=== PATIENT | female | born 1945 | race Caucasian/White ===

== ENCOUNTER 2016-10-25 11:06 | Emergency (ER) | payer OTHER ==
--- NOTE | 2016-10-25 12:15 | DIAGNOSTIC IMAGING REPORT ---
PROCEDURE: XR CHEST 1 VIEW INDICATION: CHEST PAIN TECHNIQUE: Portable AP view 12:08 p.m. COMPARISON: Chest CT 11/24/2012 FINDINGS: Lungs are clear. Heart and mediastinum are normal. Thorax is normal. IMPRESSION: 1. Negative chest.
--- NOTE | 2016-10-25 13:54 | DIAGNOSTIC IMAGING REPORT ---
PROCEDURE: CTA THORAX WITH CONTRAST INDICATION: CHEST PAIN. + D-DIMER. LLE PAIN TECHNIQUE: 92 ml of Isovue 370 was injected intravenously and axial images were obtained of the entire thorax with 3D sagittal and coronal MIP reconstructions. COMPARISON: Chest x-ray 10/25/[address] pulmonary angiogram 11/24/2012 FINDINGS: No evidence of pulmonary emboli. There is dependent atelectasis in both lung bases. Calcified left lower lobe granuloma. No adenopathy or effusion. Normal thoracic aorta without dissection or aneurysm. Normal heart size. Bilateral breast implants. Cholecystectomy with stable dilation of the intrahepatic and common bile ducts (14 mm). No suspicious osseous lesions. IMPRESSION: 1. No evidence of pulmonary emboli 2. Old granulomatous disease 3. Bilateral breast implants 4. Cholecystectomy with dilated intra and extrahepatic ducts, unchanged. Correlate with LFTs. 5. Results discussed with Dr. Ashraf
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
--- NOTE | 2016-10-25 14:12 | ED CLINICAL REPORT ---
Clinical Report - Physicians/Mid Levels [facility] [address] [place] [address] 10/25/2016 11:08 Patient: JOSE DAVID MANNING Time Seen: 1135. Arrived- By private vehicle. Historian- patient. HISTORY OF PRESENT ILLNESS Chief Complaint: CHEST PAIN. At its maximum, severity described as moderate. When seen in the E.D., it was almost gone. It is described as pressure and it is described as located in the left chest area. No radiation. This started yesterday and is still present. It was abrupt in onset and has been constant but is not gone now. The patient has had nausea. No vomiting, difficulty breathing or diaphoresis. (reports left knee pain for over a week. no leg swelling. reports family hx of gout.). No additional chest pain. Similar symptoms previously: (a few times). Recent medical care: Not recently seen/assessed. REVIEW OF SYSTEMS No fever, chills or skin rash. All systems otherwise negative, except as recorded above. PAST HISTORY See nurses notes. Medications: Allergy Oral. Multivitamins Oral. Baclofen External. Diclofenac Oral. Atenolol Oral 25 mg, daily. Ativan Oral 0.5 mg, 3x a day. Dicyclomine HCl Oral 10 mg, 3x a day as needed. Flonase Nasal. Levothyroxine Sodium Oral 200 mcg, take 1/2 , daily. Morphine Sulfate Oral 30 mg, Q6H. Neurontin Oral 100 mg, 3x a day as needed. OxyCODONE HCl Oral 5 mg, Q6H. TiZANidine HCl Oral (Tablet 2 mg), 3x a day as needed. Allergies: Darvon. Demerol. Imitrex. influena vaccine. NSAIDs. Tetanus-Diphtheria Toxoids. Tobacco leaf. Tylenol. SOCIAL HISTORY Never smoker. Occasional alcohol use. No drug use. No recent travel. Is a local resident. ADDITIONAL NOTES The nursing notes have not been reviewed. PHYSICAL EXAM Vital Signs: 10/25/2016 11:14 BP: 157/139. HR: 66. RR: 20. O2 saturation: 99%. Temp: 98.9 F. Pain level now: 4/10. Oxygen saturation normal. Appearance: Alert. Oriented X3. No acute distress. Eyes: Pupils equal, round and reactive to light. Eyes normal inspection. ENT: Ears normal. Nose normal. Pharynx normal. Neck: Normal inspection. Neck supple. CVS: Normal heart rate and rhythm. Heart sounds normal. Pulses normal. Respiratory: No respiratory distress. Breath sounds normal. Chest nontender. No rales, rhonchi or wheezes. Abdomen: Soft and nontender. Bowel sounds normal. Back: Normal external inspection. Skin: Skin warm and dry. Normal skin color. No rash. Normal skin turgor. Extremities: (mild tenderness to the lateral aspect of the left knee. No effusion. Overlying skin changes. No warmth. No bony other maladies. Compartments are soft and overlying skin changes. Knee is ligamentously stable). Neuro: Oriented X 3. No motor deficit. No sensory deficit. LABS, X-RAYS, AND EKG EKG: No acute process. No acute ischemia. Normal EKG. Normal sinus rhythm. Rate: 65. Normal P waves. Normal W[place]. Normal QRS complex. Normal axis. Normal ST and T waves, QT and QTc. normal sinus. The study has been interpreted contemporaneously. The study has been independently viewed by me. The EKG appears to be a good tracing. Chest X-ray: (PROCEDURE: XR CHEST 1 VIEW INDICATION: CHEST PAIN TECHNIQUE: Portable AP view 12:08 p.m. COMPARISON: Chest CT 11/24/2012 FINDINGS: Lungs are clear. Heart and mediastinum are normal. Thorax is normal. IMPRESSION: 1. Negative chest.). The X-rays were independently viewed by me and interpreted by the radiologist. The X-rays were discussed with the radiologist (via pacs). Chest CT: (PROCEDURE: CTA THORAX WITH CONTRAST INDICATION: CHEST PAIN. + D-DIMER. LLE PAIN TECHNIQUE: 92 ml of Isovue 370 was injected intravenously and axial images were obtained of the entire thorax with 3D sagittal and coronal MIP reconstructions. COMPARISON: Chest x-ray 10/25/[address] pulmonary angiogram 11/24/2012 FINDINGS: No evidence of pulmonary emboli. There is dependent atelectasis in both lung bases. Calcified left lower lobe granuloma. No adenopathy or effusion. Normal thoracic aorta without dissection or aneurysm. Normal heart size. Bilateral breast implants. Cholecystectomy with stable dilation of the intrahepatic and common bile ducts (14 mm). No suspicious osseous lesions. IMPRESSION: 1. No evidence of pulmonary emboli 2. Old granulomatous disease 3. Bilateral breast implants 4. Cholecystectomy with dilated intra and extrahepatic ducts, unchanged. Correlate with LFTs.). Chest CT performed with contrast. The study was independently viewed by me and interpreted by the radiologist. The study was discussed with the radiologist (via pacs and phone). Lower Extremity Sonography: PROCEDURE: US VENOUS - LEFT EXT INDICATION: PAIN TECHNIQUE: Duplex sonography of the deep venous system in the left lower extremity was performed. Compression and augmentation techniques were used. COMPARISON: None. FINDINGS: Each interrogated segment of deep vein from the common femoral vein into the calf veins demonstrates normal compressibility, augmentation and/or color Doppler flow without filling defect. No evidence of significant soft-tissue edema, soft-tissue mass or cyst. IMPRESSION: 1. No deep venous thrombosis in the left lower extremity. The study was independently viewed by me and interpreted by the radiologist. The study was discussed with the radiologist (via pacs). Laboratory Tests: CBC w Diff: (HEMA: 10/25/2016 11:20) ( MsgRcvd 10/25/2016 12:36) Final results Test Result Flag Units (Reference) WHITE BLOOD COUNT 7.5 K/uL (4.5-11.5) RED BLOOD COUNT 4.83 M/uL (4.00-5.20) HEMOGLOBIN 14.8 gm/dL (12.0-16.0) HEMATOCRIT 44.5 % (36.0-46.0) MEAN CELL VOLUME 92 fL (80-100) MEAN CORPUSCULAR HGB 31 pg (26-34) MEAN CORPUSCULAR HGB CONC 33 g/dL (31-37) RED CELL DISTRIBUTION WIDTH 14.8 % (11.6-14.8) PLATELET COUNT 265 K/uL (150-400) NEUTROPHIL % 67.9 % (50-75) LYMPH % 22.7 L % (25-40) MONO % 7.7 % (3-14) EOSINOPHIL % 1.3 % (0-4) BASOPHIL % 0.4 % (0-2) [id number]: (HEMA: 10/25/2016 11:20) ( [facility] 10/25/2016 12:37) Final results Test Result Flag Units (Reference) D-DIMER QUANTITATIVE 0.54 H ug/mLFEU (0.27-0.52) The primary value of this quantitative assay relates toits negative predictive value (i.e. exclusion) of pulmonaryembolism/deep vein thrombosis/DIC.Elevated levels of d-dimer may also occur with:, age, cancer, inflammation, liver disease,post-op, infection, hematoma, coronary disease, peripheralarteriopathy, bleeding disorders and thrombolytic treatment.Results should be correlated with other clinical andradiological data.Testing Methodology: Latex Immunoassay Troponin-I: (HEMA: 10/25/2016 11:20) ( [facility] 10/25/2016 12:55) Final results Test Result Flag Units (Reference) TROPONIN I <0.05 ng/mL (0.00-1.5) TROPONIN REFERENCE RANGE:<0.1 NEGATIVE0.1-1.5 INDETERMINANT>1.5 POSITIVE CMP: (HEMA: 10/25/2016 11:20) ( [facility] 10/25/2016 12:53) Final results Test Result Flag Units (Reference) GLUCOSE 124 H mg/dL (70-110) BUN 7 mg/dL (7-18) CREATININE 0.8 mg/dL (0.6-1.3) Estimated GFR >60 mL/min Estimated GFR- >60 mL/min Note: Persistent reduction over 3 months in eGFR<60 mL/min/1.73 m2 defines CKD. Patients with eGFR values>=60 mL/min/1.73 m2 may also have CKD if evidence ofpersistent proteinuria. Additional information may be foundat www.kidney.org. SODIUM 142 mmol/L (136-145) POTASSIUM 3.9 mmol/L (3.5-5.1) CHLORIDE 107 mmol/L (98-107) CARBON DIOXIDE 25 mmol/L (21-32) CALCIUM 9.0 mg/dL (8.5-10.1) TOTAL PROTEIN 7.3 g/dL (6.4-8.2) ALBUMIN 3.7 g/dL (3.3-5.0) BILIRUBIN, TOTAL 0.5 mg/dL (0.0-1.0) ALKALINE PHOSPHATASE 99 U/L (46-116) AST (SGOT) 20 U/L (15-37) ALT (SGPT) 36 U/L (12-78) . PROGRESS AND PROCEDURES Course of Care: the patient is a pleasant 71 year old female presenting for evaluation of left-sided leg pain as well as chest pain. Patient be evaluated for pulmonary embolism. Workup will include a d-dimer as well as laboratory studies. Patient also be valued for acute myocardial infarction, pneumonia, and DVT. Patient is agreeable to the treatment and plan. All questions have been answered. Patient is nontoxic and in no acute distress. Patient is noted to be hypertensive in the emergency department. We'll monitor closely. Patient's workup was a markable for the findings above. No acute abdomen maladies noted however the patient's d-dimer is noted to be elevated. CT scan of the patient's chest has been ordered. Because of the patient's negative troponin and chest pain occurring greater than 8 hours, do not feel that the troponin is needed at this time. Only symmetrical troponin is Needed based on guidelines. Patient is agreeable to the treatment and plan. Patient as been updated on the CT scan. Patient's workup is noted for the findings above. No signs of pulmonary embolism on patient's CT scan. DVTs noted to be negative on the ultrasound. Had discussion the patient regards to her workup here in the emergency department Including diagnosis, home care, follow-up, and return precautions.. All questions have been answered. The patient expressed understanding of these instructions and was agreeable to them. Because the patient's negative workup here in the emergency department, do not feel patient needs to be admitted to the hospitalor require further emergency department workup/evaluation. Disposition: Discharged. Condition: good. CLINICAL IMPRESSION 10/25/2016 12:21 BP: 104/73. HR: 61. RR: 15. O2 saturation: 94%. Pain level now: 4/10. Blood pressure normal. Oxygen saturation normal. Atypical chest pain .12 lead EKG performed. (left sided). Acute nontraumatic pain in the left lower extremity (knee) .12 lead EKG performed. INSTRUCTIONS Warnings: GENERAL WARNINGS: Return or contact your physician immediately if your condition worsens or changes unexpectedly, if not improving as expected, or if other problems arise. SPECIFICALLY, return if you develop chest, neck, jaw, shoulder, arm, or back pain, difficulty breathing, a fluttering sensation in your chest, lightheadedness, fainting, excessive fatigue, or sudden sweating. Your Current Medications: CONTINUE TAKING THE FOLLOWING MEDICATIONS: Allergy Oral. Atenolol Oral : 25 mg daily. Ativan Oral : 0.5 mg 3x a day. Baclofen External. Diclofenac Oral. Dicyclomine HCl Oral : 10 mg 3x a day, prn. Flonase Nasal. Levothyroxine Sodium Oral : 200 mcg, take 1/2 daily. Morphine Sulfate Oral : 30 mg Q6H. Multivitamins Oral. Neurontin Oral : 100 mg 3x a day, prn. OxyCODONE HCl Oral : 5 mg Q6H. TiZANidine HCl Oral : Tablet 2 mg, 3x a day, prn. Follow-up: Return to the emergency department as needed. Follow up with your doctor in three days. Reason for referral: recheck today's concerns. Summary of care provided to patient via paper. Screening today revealed the patient's blood pressure to be in the normal range. The patient should follow up with a primary care provider for blood pressure management. Understanding of the discharge instructions verbalized by patient. Follow-up with: Juan Luis Patrick MD, Cardiology, , [facility] - Cardiology, [address] [place] [address] [address], [place], [address] Follow up in three days. Reason for referral: recheck today's concerns. Summary of care provided to patient via paper. (Electronically signed by Sushil Ashraf Dr. 10/30/2016 6:42)
--- NOTE | 2016-10-25 14:12 | ED ORDER SUMMARY ---
..... Patient: JOSE DAVID MANNING OrderSheet [facility] VisitID: [id number] [address] [place] [address] 71y, F Registration Date/Time: 10/25/2016 ORDER SHEET Weight: 91.6 kg (stated) Allergies: Darvon, Demerol, Imitrex, influena vaccine, NSAIDs, Tetanus-Diphtheria Toxoids, Tobacco leaf, Tylenol GENERAL ORDERS: Autographer (Continuous) (11:10/25/2016 KKnebel R.N. per protocol) (11:32 KKnebel R.N.) Pulse oximeter (11:10/25/2016 KKnebel R.N. per protocol) (11:32 KKnebel R.N.) EKG - ER Stat (11:10/25/2016 KKnebel R.N. per protocol) (11:32 KKnebel R.N.) CBC w Diff Urgent (11:32 10/25/2016 KKnebel R.N. per protocol) (11:32 KKnebel R.N.) CMP Urgent (11:32 10/25/2016 KKnebel R.N. per protocol) (11:32 KKnebel R.N.) Chest 1V Urgent (11:52 10/25/2016 Cris Briones) (Ack 11:57 LMuller) (12:06 ALawrence ER Tech1) D-Dimer Urgent (11:52 10/25/2016 Cris Briones) (11:56 KKnebel R.N.) (Ack 11:57 LMuller) Troponin-I Urgent (11:52 10/25/2016 Cris Briones) (11:56 KKnebel R.N.) (Ack 11:57 LMuller) US Venous Left Urgent (11:52 10/25/2016 Cris Briones) (Ack 11:57 LMuller) (13:20 KKnebel R.N.) CTA Thorax w Cont (No) (gfr > 60) Urgent (12:58 10/25/2016 Cris Briones) (Ack 13:00 LMuller) (13:26 KKnebel R.N.) MEDICATION ORDERS: IV FLUIDS: IV Saline Lock (11:31 10/25/2016 Basim Harper per protocol) (11:32 Basim Harper) ORDER SHEET NOTES: [Electronically signed by Joaquín Villarreal R.N. (14:49 10/25/2016)] [Electronically signed by Sushil Ashraf Dr. (06:42 10/30/2016)] [Electronically locked/signed by Joaquín Villarreal R.N. (14:49 10/25/2016)]
--- NOTE | 2016-10-25 14:12 | ED ORDER SUMMARY ---
..... Patient: JOSE DAVID MANNING OrderSheet [facility] VisitID: [id number] [address] [place] [address] 71y, F Registration Date/Time: 10/25/2016 ORDER SHEET Weight: 91.6 kg (stated) Allergies: Darvon, Demerol, Imitrex, influena vaccine, NSAIDs, Tetanus-Diphtheria Toxoids, Tobacco leaf, Tylenol GENERAL ORDERS: Translator Deaf (Continuous) (11:10/25/2016 KKnebel R.N. per protocol) (11:32 KKnebel R.N.) Pulse oximeter (11:10/25/2016 KKnebel R.N. per protocol) (11:32 KKnebel R.N.) EKG - ER Stat (11:10/25/2016 KKnebel R.N. per protocol) (11:32 KKnebel R.N.) CBC w Diff Urgent (11:32 10/25/2016 KKnebel R.N. per protocol) (11:32 KKnebel R.N.) CMP Urgent (11:32 10/25/2016 KKnebel R.N. per protocol) (11:32 KKnebel R.N.) Chest 1V Urgent (11:52 10/25/2016 Cris Briones) (Ack 11:57 LMuller) (12:06 ALawrence ER Tech1) D-Dimer Urgent (11:52 10/25/2016 Cris Briones) (11:56 KKnebel R.N.) (Ack 11:57 LMuller) Troponin-I Urgent (11:52 10/25/2016 Cris Briones) (11:56 KKnebel R.N.) (Ack 11:57 LMuller) US Venous Left Urgent (11:52 10/25/2016 Cris Briones) (Ack 11:57 LMuller) (13:20 KKnebel R.N.) CTA Thorax w Cont (No) (gfr > 60) Urgent (12:58 10/25/2016 Cris Briones) (Ack 13:00 LMuller) (13:26 KKnebel R.N.) MEDICATION ORDERS: IV FLUIDS: IV Saline Lock (11:31 10/25/2016 Basim Harper per protocol) (11:32 Basim Harper) ORDER SHEET NOTES: [Electronically signed by Joaquín Villarreal R.N. (14:49 10/25/2016)] [Electronically signed by Sushil Ashraf Dr. (06:42 10/30/2016)] [Electronically locked/signed by Joaquín Villarreal R.N. (14:49 10/25/2016)]
--- NOTE | 2016-10-30 06:43 | ED MAR SUMMARY ---
..... Medication Administration Record [facility] [address] [place], [place] [id number] Patient: JOSE DAVID MANNING Visit ID: [id number] 71y, F Weight: 91.6 kg Height/Length: 65 in BMI: 33.6 ALLERGIES: Darvon, Demerol, Imitrex, influena vaccine, NSAIDs, Tetanus-Diphtheria Toxoids, Tobacco leaf, Tylenol
--- NOTE | 2016-10-30 06:43 | ED MED RECONCILIATION SUMMARY ---
Patient: JOSE DAVID MANNING Medication Reconciliation Report [facility] VisitID: [id number] [address] [place] [address] 71y, F Registration Date/Time: 10/25/2016 Weight: 91.6 kg Height/Length: 65 in. BMI: 33.6 ALLERGIES: Darvon, Demerol, Imitrex, influena vaccine, NSAIDs, Tetanus-Diphtheria Toxoids, Tobacco leaf, Tylenol The patient's Home Medications are listed below: CONTINUE TAKING THE FOLLOWING MEDICATIONS: Allergy Oral Atenolol Oral 25 mg, daily Ativan Oral 0.5 mg, 3x a day Baclofen External Diclofenac Oral Dicyclomine HCl Oral 10 mg, 3x a day Flonase Nasal Levothyroxine Sodium Oral 200 mcg, take 1/2 , daily Morphine Sulfate Oral 30 mg, Q6H Multivitamins Oral Neurontin Oral 100 mg, 3x a day OxyCODONE HCl Oral 5 mg, Q6H TiZANidine HCl Oral (2 mg), 3x a day The source(s) of the original Home Medication information: Not obtained. The following Medications were given to the patient in the Emergency Department: None. The following Medications were prescribed to the patient: None.
--- NOTE | 2016-10-30 06:43 | ED MAR SUMMARY ---
..... Medication Administration Record [facility] [address] [place], [place] [id number] Patient: JOSE DAVID MANNING Visit ID: [id number] 71y, F Weight: 91.6 kg Height/Length: 65 in BMI: 33.6 ALLERGIES: Darvon, Demerol, Imitrex, influena vaccine, NSAIDs, Tetanus-Diphtheria Toxoids, Tobacco leaf, Tylenol
--- NOTE | 2016-10-30 06:43 | ED DISCHARGE INSTRUCTIONS ---
Patient: JOSE DAVID MANNING General Instructions [facility] VisitID: [id number] [place] [address] 71y, F Registration Date/Time: 10/25/2016 10/25/2016 12:21 BP: 104/73. HR: 61. RR: 15. O2 saturation: 94%. Pain level now: 4/10. Blood pressure normal. Oxygen saturation normal. Atypical chest pain .12 lead EKG performed. (left sided). Acute nontraumatic pain in the left lower extremity (knee) .12 lead EKG performed. INSTRUCTIONS Warnings: GENERAL WARNINGS: Return or contact your physician immediately if your condition worsens or changes unexpectedly, if not improving as expected, or if other problems arise. SPECIFICALLY, return if you develop chest, neck, jaw, shoulder, arm, or back pain, difficulty breathing, a fluttering sensation in your chest, lightheadedness, fainting, excessive fatigue, or sudden sweating. Your Current Medications: CONTINUE TAKING THE FOLLOWING MEDICATIONS: Allergy Oral. Atenolol Oral : 25 mg daily. Ativan Oral : 0.5 mg 3x a day. Baclofen External. Diclofenac Oral. Dicyclomine HCl Oral : 10 mg 3x a day, prn. Flonase Nasal. Levothyroxine Sodium Oral : 200 mcg, take 1/2 daily. Morphine Sulfate Oral : 30 mg Q6H. Multivitamins Oral. Neurontin Oral : 100 mg 3x a day, prn. OxyCODONE HCl Oral : 5 mg Q6H. TiZANidine HCl Oral : Tablet 2 mg, 3x a day, prn. Follow-up: Return to the emergency department as needed. Follow up with your doctor in three days. Reason for referral: recheck today's concerns. Summary of care provided to patient via paper. Screening today revealed the patient's blood pressure to be in the normal range. The patient should follow up with a primary care provider for blood pressure management. Understanding of the discharge instructions verbalized by patient. Follow-up with: [place] Patrick MD, Cardiology, , [facility] - Cardiology, [address], [place], [address] Follow up in three days. Reason for referral: recheck today's concerns. Summary of care provided to patient via paper. ADDITIONAL INFORMATION Chest Pain, Uncertain Cause Chest pain can happen for a number of reasons. Sometimes the cause can not be determined. If yourcondition does not seem serious, and your pain does not appear to be coming from your heart, your doctor may recommend watching it closely. Sometimes the signs of a serious problem take more time to appear. Therefore, watch for the warning signs listed below. Home care After your visit, follow these recommendations: Rest today and avoid strenuous activity. Take any prescribed medicine as directed. Follow-up care Follow up with your doctor or this facility as instructed or if you do not start to feel better within 24 hours. Call 911 Get immediate medical attention if any of the following occur: A change in the type of pain: if it feels different, becomes more severe, lasts longer, or begins to spread into your shoulder, arm, neck, jaw or back Shortness of breath or increased pain with breathing Weakness, dizziness, or fainting Rapid heart beat Get prompt medical attention Call your doctor right away if any of the following occur: Cough with dark colored sputum (phlegm) or blood Fever of 100.4F(38C) or higher, or as directed by your health care provider Swelling, pain or redness in one leg Pain, Uncertain Cause [Acute] Pain is the bodys way of calling attention to a problem. Pain can be caused by many conditions - some minor, some serious. In your case, we were not able to find the exact cause for your pain. However, at this time there is no sign of any serious or life-threatening illness causing your pain. Sometimes more tests will be needed to determine the cause. Other times, just allowing more time to pass will either make it clear what the problem is, or the pain will go away by itself. Home Care: You may use acetaminophen (Tylenol) or ibuprofen (Motrin, Advil) to control pain, unless another medicine was prescribed. [NOTE: If you have chronic liver or kidney disease or ever had a stomach ulcer or GI bleeding, talk with your doctor before using these medicines.] Follow Up with your doctor or as advised by our staff. Get Prompt Medical Attention if any of the following occur: Changes in the pattern of your pain Appearance of new symptoms Fever of 100.4F (38C) or higher, or as directed by your healthcare provider You have been given the following additional information: Chest Pain, Uncertain Cause Pain, Uncertain Cause (Acute) (Electronically signed by Sushil Ashraf Dr. 10/30/2016 6:42)
--- NOTE | 2016-10-30 06:43 | ED DISCHARGE INSTRUCTIONS ---
Patient: JOSE DAVID MANNING General Instructions [facility] VisitID: [id number] [place] [address] 71y, F Registration Date/Time: 10/25/2016 10/25/2016 12:21 BP: 104/73. HR: 61. RR: 15. O2 saturation: 94%. Pain level now: 4/10. Blood pressure normal. Oxygen saturation normal. Atypical chest pain .12 lead EKG performed. (left sided). Acute nontraumatic pain in the left lower extremity (knee) .12 lead EKG performed. INSTRUCTIONS Warnings: GENERAL WARNINGS: Return or contact your physician immediately if your condition worsens or changes unexpectedly, if not improving as expected, or if other problems arise. SPECIFICALLY, return if you develop chest, neck, jaw, shoulder, arm, or back pain, difficulty breathing, a fluttering sensation in your chest, lightheadedness, fainting, excessive fatigue, or sudden sweating. Your Current Medications: CONTINUE TAKING THE FOLLOWING MEDICATIONS: Allergy Oral. Atenolol Oral : 25 mg daily. Ativan Oral : 0.5 mg 3x a day. Baclofen External. Diclofenac Oral. Dicyclomine HCl Oral : 10 mg 3x a day, prn. Flonase Nasal. Levothyroxine Sodium Oral : 200 mcg, take 1/2 daily. Morphine Sulfate Oral : 30 mg Q6H. Multivitamins Oral. Neurontin Oral : 100 mg 3x a day, prn. OxyCODONE HCl Oral : 5 mg Q6H. TiZANidine HCl Oral : Tablet 2 mg, 3x a day, prn. Follow-up: Return to the emergency department as needed. Follow up with your doctor in three days. Reason for referral: recheck today's concerns. Summary of care provided to patient via paper. Screening today revealed the patient's blood pressure to be in the normal range. The patient should follow up with a primary care provider for blood pressure management. Understanding of the discharge instructions verbalized by patient. Follow-up with: [place] Patrick MD, Cardiology, , [facility] - Cardiology, [address], [place], [address] Follow up in three days. Reason for referral: recheck today's concerns. Summary of care provided to patient via paper. ADDITIONAL INFORMATION Chest Pain, Uncertain Cause Chest pain can happen for a number of reasons. Sometimes the cause can not be determined. If yourcondition does not seem serious, and your pain does not appear to be coming from your heart, your doctor may recommend watching it closely. Sometimes the signs of a serious problem take more time to appear. Therefore, watch for the warning signs listed below. Home care After your visit, follow these recommendations: Rest today and avoid strenuous activity. Take any prescribed medicine as directed. Follow-up care Follow up with your doctor or this facility as instructed or if you do not start to feel better within 24 hours. Call 911 Get immediate medical attention if any of the following occur: A change in the type of pain: if it feels different, becomes more severe, lasts longer, or begins to spread into your shoulder, arm, neck, jaw or back Shortness of breath or increased pain with breathing Weakness, dizziness, or fainting Rapid heart beat Get prompt medical attention Call your doctor right away if any of the following occur: Cough with dark colored sputum (phlegm) or blood Fever of 100.4F(38C) or higher, or as directed by your health care provider Swelling, pain or redness in one leg Pain, Uncertain Cause [Acute] Pain is the bodys way of calling attention to a problem. Pain can be caused by many conditions - some minor, some serious. In your case, we were not able to find the exact cause for your pain. However, at this time there is no sign of any serious or life-threatening illness causing your pain. Sometimes more tests will be needed to determine the cause. Other times, just allowing more time to pass will either make it clear what the problem is, or the pain will go away by itself. Home Care: You may use acetaminophen (Tylenol) or ibuprofen (Motrin, Advil) to control pain, unless another medicine was prescribed. [NOTE: If you have chronic liver or kidney disease or ever had a stomach ulcer or GI bleeding, talk with your doctor before using these medicines.] Follow Up with your doctor or as advised by our staff. Get Prompt Medical Attention if any of the following occur: Changes in the pattern of your pain Appearance of new symptoms Fever of 100.4F (38C) or higher, or as directed by your healthcare provider You have been given the following additional information: Chest Pain, Uncertain Cause Pain, Uncertain Cause (Acute) (Electronically signed by Sushil Ashraf Dr. 10/30/2016 6:42)
--- NOTE | 2016-10-30 06:43 | ED MED RECONCILIATION SUMMARY ---
Patient: JOSE DAVID MANNING Medication Reconciliation Report [facility] VisitID: [id number] [address] [place] [address] 71y, F Registration Date/Time: 10/25/2016 Weight: 91.6 kg Height/Length: 65 in. BMI: 33.6 ALLERGIES: Darvon, Demerol, Imitrex, influena vaccine, NSAIDs, Tetanus-Diphtheria Toxoids, Tobacco leaf, Tylenol The patient's Home Medications are listed below: CONTINUE TAKING THE FOLLOWING MEDICATIONS: Allergy Oral Atenolol Oral 25 mg, daily Ativan Oral 0.5 mg, 3x a day Baclofen External Diclofenac Oral Dicyclomine HCl Oral 10 mg, 3x a day Flonase Nasal Levothyroxine Sodium Oral 200 mcg, take 1/2 , daily Morphine Sulfate Oral 30 mg, Q6H Multivitamins Oral Neurontin Oral 100 mg, 3x a day OxyCODONE HCl Oral 5 mg, Q6H TiZANidine HCl Oral (2 mg), 3x a day The source(s) of the original Home Medication information: Not obtained. The following Medications were given to the patient in the Emergency Department: None. The following Medications were prescribed to the patient: None.
== END 2016-10-25 14:30 | disposition home or self-care (01) ==
LOC: ED SRH 11:06
DX: R07.89 Other chest pain (principal); M25.562 Pain in left knee; Z79.891 Long term (current) use of opiate analgesic; Z79.899 Other long term (current) drug therapy; Z79.1 Long term (current) use of non-steroidal anti-inflammatories (NSAID); Z88.6 Allergy status to analgesic agent; Z88.5 Allergy status to narcotic agent; Z88.8 Allergy status to other drugs, medicaments and biological substances; Z88.7 Allergy status to serum and vaccine; Z91.09 Other allergy status, other than to drugs and biological substances